=== PATIENT | male | born 1980 ===

== ENCOUNTER 2018-02-13 00:31 | Emergency (ER) | payer SELFPAY ==
[2018-02-13 00:31] VITALS: BMI 20.9
[2018-02-13 00:41] VITALS: TEMP 98.5
[2018-02-13 01:40] VITALS: BP 124/80; PULSE 96; RESP 16; O2SAT 95
--- NOTE | 2018-02-13 01:44 | C.PDOC ---
History Of Present Illness 37 year old male presents to the emergency department with complaints of a dislocated right shoulder last night. Patient states that he was able to put the shoulder back in place himself and go to work today. Patient presents to the ED to ensure that his shoulder is back in place, and currently complains of right shoulder pain. Time Seen by Provider: 02/13/18 00:38 Chief Complaint (Nursing): Upper Extremity Problem/Injury History Per: Patient History/Exam Limitations: no limitations Onset/Duration Of Symptoms: Days (1) Current Symptoms Are (Timing): Still Present Quality: "Pain" Past Medical History Reviewed: Historical Data, Nursing Documentation, Vital Signs Vital Signs: Last Vital Signs Temp 98.5 F 02/13/18 01:39 Pulse 96 H 02/13/18 01:39 Resp 16 02/13/18 01:39 BP 124/80 02/13/18 01:39 Pulse Ox 95 02/13/18 01:39 - Medical History PMH: Anxiety, Asthma (NO MEDS), Depression, Fractures (RT METACARPAL/CHILDHOOD CASTED) Denies: Chronic Kidney Disease Surgical History: No Surg Hx - [facility] Procedures APPLICATION OF SPLINT (12/01/14) CLOSURE SKIN & SUBCUTANEOUS NEC (12/01/14) Family History: States: Unknown Family Hx - Social History Hx Tobacco Use: No Hx Alcohol Use: No Hx Substance Use: No - Immunization History Hx Tetanus Toxoid Vaccination: No Hx Influenza Vaccination: No Hx Pneumococcal Vaccination: No Review Of Systems Musculoskeletal: Positive for: Shoulder Pain (right shoulder) Neurological: Negative for: Weakness, Numbness Physical Exam - Physical Exam Appears: Non-toxic, No Acute Distress Skin: Warm, Dry Head: Atraumatic, Normacephalic Eye(s): bilateral: Normal Inspection, PERRL, EOMI Neck: Normal, Supple Extremity: Normal ROM (to the right shoulder), No Tenderness, No Deformity, No Swelling Pulses: Left Brachial: Normal, Right Brachial: Normal, Left Radial: Normal, Right Radial: Normal Neurological/Psych: Oriented x3, Normal Speech, Normal Cognition ED Course And Treatment O2 Sat by Pulse Oximetry: 95 (RA) Pulse Ox Interpretation: Normal - Other Rad XR Right Shoulder X-Ray: Interpreted by Me, Viewed By Me Interpretation: No sign of dislocation. Medical Decision Making Medical Decision Making: Plan: XR Right Shoulder Disposition Counseled Patient/Family Regarding: Studies Performed, Diagnosis, Need For Followup - Disposition Referrals: Alon Scott III, MD [Staff Provider] - Disposition: HOME/ ROUTINE Disposition Time: 01:42 Condition: GOOD Additional Instructions: Follow up with Dr Scott or orthopedist of your choice in next week. Recommend keeping sling on right arm until seen by orthopedics to avoid dislocation. Tylenol or Motrin for pain if needed. Instructions: Shoulder Instability (DC) Forms: Fluid (Greenlandic) - Clinical Impression Clinical Impression: Shoulder pain, right - PA / [employer] OPERATOR / Resident Statement MD/DO has reviewed & agrees with the documentation as recorded. - Scribe Statement The provider has reviewed the documentation as recorded by the Scribe (Jose Ramon Mckeon) All medical record entries made by the Scribe were at my direction and personally dictated by me. I have reviewed the chart and agree that the record accurately reflects my personal performance of the history, physical exam, medical decision making, and the department course for this patient. I have also personally directed, reviewed, and agree with the discharge instructions and disposition.
--- NOTE | 2018-02-13 09:40 | RAD ---
Date of service: 02/13/2018 PROCEDURE: SINGLE RIGHT SHOULDER RADIOGRAPH HISTORY: r/o dislocation COMPARISON: Right shoulder MRI 11/21/2014. TECHNIQUE: Single frontal view of the right shoulder been submitted with the humerus somewhat in internal rotation. FINDINGS: No acute fracture identified. No gross dislocation. Acromioclavicular joint appears unremarkable. Local soft tissues are also unremarkable. IMPRESSION: No acute fracture or gross dislocation appreciable. Consider completion of exam with external rotation projection.
== END 2018-02-13 01:55 | disposition home or self-care (01) ==
LOC: C.ER 00:31
DX: M25.511 Pain in right shoulder (principal)